=== PATIENT | male | born 1945 | race Caucasian/White ===

== ENCOUNTER → 2020-11-16 08:47 | Outpatient (BNVA) | payer OTHER, SELFPAY | PROVIDERS: PCP Internal Medicine; Visit Provider Urology | DX: N40.0 Benign prostatic hyperplasia without lower urinary tract symptoms (principal); R97.20 Elevated prostate specific antigen [PSA] | CPT/HCPCS: 51798 ==

== ENCOUNTER 2020-12-07 11:29 | Outpatient (REF) | payer OTHER, SELFPAY ==
[2020-12-07 11:43] VITALS: BMI 38.7
[2020-12-07 11:48] VITALS: BP 130/68; PULSE 76; RESP 16; TEMP 36.3; O2SAT 98
--- NOTE | 2020-12-07 12:32 | W.PM.OPN ---
Operative Note Operative Note Date of Service: 12/07/20 Narrative: Preoperative diagnosis: Elevated PSA Postoperative diagnosis: Elevated PSA Procedure: 1. transrectal ultrasound measurement of prostate 2. transrectal ultrasound-guided pudendal nerve block 3. transrectal ultrasound-guided prostate biopsy 12 core Surgeon: Dr. Charlie Yang Anesthetic: Local Indications for procedure: Elevated PSA PSA 50 Procedure: After informed consent was verified, the patient was brought into the procedure area and lay left-hand side down on the table. Patient identity confirmed. Perioperative antibiotics confirmed. Gel was placed per rectum Ultrasound probe was placed per rectum The prostate was measured in 3 dimensions Total volume equals 75 gm There were no cystic structures and no calcifications noted and the prostate was homogeneous in nature A ultrasound-guided pudendal nerve block was performed using 10 cc of 1% lidocaine. 8 cc was placed at the base and 2 cc of the apex. A 12 core biopsy was performed with 6 cores each side. Two cores were taken at the apex, mid and base. Cores were spaced between lateral and medial. He tolerated the procedure well. Was able to ambulate to bathroom after 5 minutes. Printed instructions regarding antibiotic use and common side effects such as low-grade temperature and bleeding were given.
[2020-12-07 12:45] VITALS: BP 110/70; PULSE 76; RESP 16; O2SAT 98
--- NOTE | 2021-02-23 15:39 | W.PM.OPN ---
Operative Note Operative Note Date of Service: 12/07/20 Narrative: Preoperative diagnosis: Elevated PSA Postoperative diagnosis: Elevated PSA Procedure: 1. transrectal ultrasound measurement of prostate 2. transrectal ultrasound-guided pudendal nerve block 3. transrectal ultrasound-guided prostate biopsy 12 core Surgeon: Dr. Charlie Yang Anesthetic: Local Indications for procedure: Elevated PSA Procedure: After informed consent was verified, the patient was brought into the procedure area and lay left-hand side down on the table. Patient identity confirmed. Perioperative antibiotics confirmed. Gel was placed per rectum Ultrasound probe was placed per rectum The prostate was measured in 3 dimensions Total volume equals 50 gm There were no cystic structures and no calcifications noted and the prostate was homogeneous in nature A ultrasound-guided pudendal nerve block was performed using 10 cc of 1% lidocaine. 8 cc was placed at the base and 2 cc of the apex. A 12 core biopsy was performed with 6 cores each side. Two cores were taken at the apex, mid and base. Cores were spaced between lateral and medial. He tolerated the procedure well. Was able to ambulate to bathroom after 5 minutes. Printed instructions regarding antibiotic use and common side effects such as low-grade temperature and bleeding were given.
== END 2020-12-07 11:30 | disposition home or self-care (01) ==
LOC: HO.MS 11:29
PROVIDERS: Visit Provider Urology
PROC: (CPT 55700; principal; 2020-12-07 12:00)
DX: C61 Malignant neoplasm of prostate (principal); R97.20 Elevated prostate specific antigen [PSA]
CPT/HCPCS: 55700; 76942; 88305

== ENCOUNTER → 2020-12-15 14:47 | Outpatient (BNVA) | payer OTHER, SELFPAY | PROVIDERS: PCP Internal Medicine; Visit Provider Urology ==

== ENCOUNTER → 2021-01-21 14:30 | Outpatient (BNVA) | payer OTHER, SELFPAY | PROVIDERS: PCP Internal Medicine ==

== ENCOUNTER → 2021-02-24 11:39 | Outpatient (BNVA) | payer OTHER, SELFPAY | PROVIDERS: PCP Internal Medicine; Visit Provider Urology ==

== ENCOUNTER 2021-04-07 11:17 | Outpatient (REF) | payer OTHER, SELFPAY ==
[2021-04-07 11:35] VITALS: BP 143/56; PULSE 86; RESP 16; TEMP 36.1; O2SAT 97
[2021-04-07 11:38] VITALS: BMI 36.9
[2021-04-07 12:51] VITALS: BP 113/55; PULSE 78; RESP 16; O2SAT 97
--- NOTE | 2021-04-07 14:25 | W.PM.OPN ---
Operative Note Operative Note Date of Service: 04/07/21 Narrative: Preoperative diagnosis: Prostate cancer Postoperative diagnosis: Prostate cancer Procedure: 1. Transrectal ultrasound-guided pudendal nerve block 2. Transrectal ultrasound-guided gold seed placement Surgeon: Dr. Charlie Yang Anesthetic: Local Indications for procedure: Prostate Cancer Procedure: After informed consent was verified, the patient was brought into the procedure area and lay left-hand side down on the table. Patient identity confirmed. Perioperative antibiotics confirmed. Gel was placed per rectum Ultrasound probe was placed per rectum A ultrasound-guided pudendal nerve block was performed using 10 cc of 1% lidocaine. 8 cc was placed at the base and 2 cc of the apex. 3 gold seed markers placed. 2 on the right, 1 on the left. The purpose is for triangulation. He tolerated the procedure well. Was able to ambulate to bathroom after 5 minutes. Printed instructions regarding antibiotic use and common side effects such as low-grade temperature and bleeding were given
== END 2021-04-07 11:18 | disposition home or self-care (01) ==
LOC: HO.MS 11:17
PROVIDERS: PCP Internal Medicine; Visit Provider Urology
PROC: (CPT 55876; principal; 2021-04-07 12:00)
DX: C61 Malignant neoplasm of prostate (principal)
CPT/HCPCS: 55876; 76942; A4648

== ENCOUNTER → 2021-07-22 09:14 | Outpatient (BNVA) | payer OTHER, SELFPAY | PROVIDERS: PCP Internal Medicine; Visit Provider Urology | DX: Z13.89 Encounter for screening for other disorder (principal) ==

== ENCOUNTER → 2021-08-05 09:11 | Outpatient (BNVA) | payer OTHER, SELFPAY | PROVIDERS: PCP Internal Medicine; Visit Provider Urology | DX: Z51.11 Encounter for antineoplastic chemotherapy (principal); C61 Malignant neoplasm of prostate | CPT/HCPCS: 96402; J9217 ==

== ENCOUNTER → 2021-10-28 10:43 | Outpatient (BNVA) | payer OTHER, MEDICARE, SELFPAY | PROVIDERS: PCP Internal Medicine; Visit Provider Urology | DX: C61 Malignant neoplasm of prostate (principal) | CPT/HCPCS: 51798 ==

== ENCOUNTER → 2022-02-16 08:59 | Outpatient (BNVA) | payer OTHER, SELFPAY | PROVIDERS: PCP Internal Medicine; Visit Provider Urology | DX: C61 Malignant neoplasm of prostate (principal) | CPT/HCPCS: 96402; J9217 ==

== ENCOUNTER → 2022-08-25 09:04 | Outpatient (BNVA) | payer OTHER, SELFPAY | PROVIDERS: PCP Internal Medicine; Visit Provider Urology ==

== ENCOUNTER 2022-11-28 11:22 | Outpatient (AMB) | payer OTHER, SELFPAY ==
--- NOTE | 2022-11-28 11:31 | A.OFFVIS_ITS ---
Intake Intake Visit Reasons: 3M PSA/Testo(set) Intake Note: Patient is present for Follow Up Urology Med: Tamsulosin Antibiotic Allergy:None Blood Thinner: Aspirin Pharmacy: [facility] Allergies No Known Allergies Allergy (Verified 08/25/22 09:22) Medication List - Last Reconciled 11/28/22 by Charlie Yang MD aspirin (Adult Low Dose Aspirin) 81 mg PO DAILY hydrochlorothiazide 25 mg PO DAILY lisinopril 10 mg PO DAILY metformin 2,000 mg PO DAILY peg-electrolyte soln 420 gram 4,000 mL PO DIRECTED pravastatin 80 mg PO DAILY pravastatin 80 mg PO DAILY tamsulosin 0.4 mg PO DAILY HPI HPI Comments History of Present Illness Details Melvin is a pleasant male. He is a patient of Dr. Thomas. He is seen for the following urologic conditions. - elevated PSA High-grade prostate cancer follow-up Continues PSA remains low, testosterone remains suppressed Continue 3 month follow-up for 2 years Prostate cancer - high-grade prostate cancer November 2020 initial PSA 37 - completed external beam radiation [facility] 07/12 Last [facility] 08/12 Initial therapy - external beam radiation [facility] plus hormones 18 months - radiation complete 07/12 - testosterone remained blocked for 24 months Prostate cancer diagnosed by Dr. Yang November 2020 Delay secondary to COVID from 2019 Background diabetes PSA 04/09 , a total PSA evaluation 5.6 08/09 2.6, 02/08 2.9, 08/10 10.5, 10/12 0.8 T 17, 02/11 0.7 T 17, 08/13 0.4 T19, 11/12 0.3 11 Histologic type: Adenocarcinoma, acinar type Histologic grade: [place] score:5+4=9 (left base lateral, left mid lateral, left mid medial, left apex lateral) 4+3=7 (left base medial) Tumor quantitation: Number cores positive: 5 Total number of cores: 12 ?% of tissue involved: 35% of all tissue examined (tumor only present on left side) Perineural inv.: Present LVI: Not identified [facility] 01/21/2021, 08/12 Staging - 02/[address] scan negative Three month follow-up lab work PFSH Medical History Benign prostatic hyperplasia with lower urinary tract symptoms Elevated PSA HTN (hypertension) Nocturia Urinary urgency Social History Patient Tobacco Use Status: Never used Tobacco Review of Systems Const Denies chills and Denies fever(s) Card Reports no additional complaints and Denies syncope Resp Denies cough GI Denies abdominal pain and Denies heartburn Reports as per HPI and Denies change in libido Neuro Denies syncope Psych Denies change in libido Endo Denies change in libido Physical Exam Const General: cooperative, healthy appearing, comfortable and no acute distress Orientation/consciousness: patient oriented x3 HEENT Face and sinus: Yes normal facial exam Mouth: moist mucous membranes Neck Neck: Yes normal visual inspection, Yes full ROM and Yes trachea midline Chest Chest palpation & inspection: normal inspection of the chest Resp Effort & Inspection: normal respiratory effort, able to speak in complete sentences and no respiratory distress GI Inspection: Yes normal to inspection Back/Spine/Pelvis Cervical Spine: normal cervical lordosis Thoracic/Lumbar Spine: thoracic and lumbar spine normal to inspection Skin General skin exam: no rashes or lesions noted Neuro General: patient oriented x3, gait normal, tone normal and moves all extremities Extrem General: Yes normal to inspection and Yes capillary refill normal Assessment & Plan Assessment & Plan (1) Prostate cancer: Comment: December 2020 high-grade prostate cancer - external beam radiation with 18 months hormones Code(s): C61 - Malignant neoplasm of prostate Plan Three month follow-up Orders: Orders Prostate Specific Antigen 3 Months C61 - Malignant neoplasm of prostate Testosterone, Total 3 Months C61 - Malignant neoplasm of prostate Patient Instructions: Imaging studies, laboratory and physical exam results were discussed and r eviewed in detail. No major barriers to patient understanding were identified. An opportunity to ask questions regarding the treatment plan was provided. All questions were answered. The patient expressed understanding and agreement with the above treatment plan. The patient is aware they should contact our office by phone for worsening of their current condition or the appearance of new urologic symptoms. Compliance is encouraged with any medications and followup testing that is ordered. It is a privilege to participate in the urologic care of your patient. If you have any questions or concerns regarding treatment for the above conditions, or other urologic issues, please do not hesitate to contact me. The office telephone contact is [phone]. This note is constructed using voice recognition software. While every effort has been made to ensure accuracy cork cutter errors may have been included. Yours sincerely, Dr Charlie Yang MD, [facility] - Urology Providers of Expert, Compassionate Care for the Genitourinary System Coding Level of Care Code Est Pt Level 3 (35368) Diagnoses Prostate cancer C61
== END 2022-11-28 12:01 | disposition home or self-care (01) ==
PROVIDERS: Visit Provider Urology
DX: C61 Malignant neoplasm of prostate (principal)
CPT/HCPCS: 99213

== ENCOUNTER → 2022-11-28 11:22 | Outpatient (BNVA) | payer OTHER, SELFPAY | PROVIDERS: Visit Provider Urology ==

== ENCOUNTER 2023-02-28 09:11 | Outpatient (AMB) | payer OTHER, SELFPAY ==
--- NOTE | 2023-02-28 09:12 | A.OFFVIS_ITS ---
Intake Intake Visit Reasons: 3m/PSA(set) Intake Note: Patient is Present for Telephone Follow Up PSA Urology Med: Tamsulosin (Patient would like to discuss if he should stay on medication) Antibiotic Allergy: None Blood Thinner: Aspirin Allergies No Known Allergies Allergy (Verified 02/28/23 09:13) Medication List - Last Reconciled 02/28/23 by Charlie Yang MD aspirin (Adult Low Dose Aspirin) 81 mg PO DAILY hydrochlorothiazide 25 mg PO DAILY lisinopril 10 mg PO DAILY metformin 2,000 mg PO DAILY peg-electrolyte soln 420 gram 4,000 mL PO DIRECTED pravastatin 80 mg PO DAILY pravastatin 80 mg PO DAILY tamsulosin 0.4 mg PO DAILY HPI HPI Comments History of Present Illness Details Melvin is a pleasant male. He is a patient of Dr. Thomas. He is seen for the following urologic conditions. - elevated PSA - prostate cancer Telemedicine Evaluation 15 min Consultation [facility] Video attempted High-grade prostate cancer follow-up Continues PSA remains low, testosterone remains suppressed Continue 3 month follow-up for 2 years Prostate cancer - high-grade prostate cancer November 2020 initial PSA 37 - completed external beam radiation [facility] 07/12 Last [facility] 08/12 Initial therapy - external beam radiation [facility] plus hormones 18 months - radiation complete 07/12 - testosterone remained blocked for 24 m [facility] Prostate cancer diagnosed by Dr. Yang November 2020 Delay secondary to COVID from 2019 Background diabetes PSA 04/09 , a total PSA evaluation 5.6 08/09 2.6, 02/08 2.9, 08/10 10.5, 10/12 0.8 T 17, 02/11 0.7 T 17, 08/13 0.4 T19, 11/12 0.3 11, 03/15 0.3 17 Histologic type: Adenocarcinoma, acinar type Histologic grade: [place] score:5+4=9 (left base lateral, left mid lateral, left mid medial, left apex lateral) 4+3=7 (left base medial) Tumor quantitation: Number cores positive: 5 Total number of cores: 12 ?% of tissue involved: 35% of all tissue examined (tumor only present on left side) Perineural inv.: Present LVI: Not identified [facility] 01/21/2021, 08/12 Staging - 02/[address] scan negative Three month follow-up lab work [facility] Medical History HTN (hypertension) Benign prostatic hyperplasia with lower urinary tract symptoms Urinary urgency Nocturia Elevated PSA Social History Patient Tobacco Use Status: Never used Tobacco Review of Systems Const All systems reviewed & are unremarkable except as noted in HPI and below Reports no additional complaints Resp Reports no additional complaints GI Reports no additional complaints Reports as per HPI Musc Reports no additional complaints Physical Exam Telemedicine evaluation Appropriate responses Regular breathing rate and rhythm HEENT Head: Yes normal to inspection Ears: hearing grossly normal bilaterally Eyes General: appearance normal, both eyes and all related structures Neck Neck: Yes normal visual inspection Chest Chest palpation & inspection: normal inspection of the chest Resp Effort & Inspection: normal respiratory effort and able to speak in complete sentences Assessment & Plan Assessment & Plan (1) Prostate cancer: Comment: December 2020 high-grade prostate cancer - external beam radiation with 18 months hormones Code(s): C61 - Malignant neoplasm of prostate (2) Elevated PSA: Code(s): R97.20 - Elevated prostate specific antigen [PSA] Plan Three month follow-up labs office Orders: Orders Testosterone, Total 3 Months C61 - Malignant neoplasm of prostate Prostate Specific Antigen 3 Months C61 - Malignant neoplasm of prostate Patient Instructions: Imaging studies, laboratory and physical exam results were discussed and reviewed in detail. No major barriers to patient understanding were identified. An opportunity to ask questions regarding the treatment plan was provided. All questions were answered. The patient expressed understanding and agreement with the above treatment plan. The patient is aware they should contact our office by phone for worsening of their current condition or the appearance of new urologic symptoms. Compliance is encouraged with any medications and followup testing that is ordered. It is a privilege to participate in the urologic care of your patient. If you have any questions or concerns regarding treatment for the above conditions, or other urologic issues, please do not hesitate to contact me. The office telephone contact is [phone]. This note is constructed using voice recognition software. While every effort has been made to ensure accuracy energy assistant errors may have been included. Yours sincerely, Dr Charlie Yang MD, [facility] - Urology Providers of Expert, Compassionate Care for the Genitourinary System Telehealth Telehealth Location of provider rendering services: practice address Location of patient: address on file Patient Identification confirmed using: Name, : Yes Telehealth method: video Patient verbally consented to treatment: Yes Patient verbally consented to billing insurance company: Yes Patient informed of any privacy concerns related to visit: Yes Coding Level of Care Code Tele Est Pt Level 3 (62703) Diagnoses Prostate cancer C61 Elevated PSA R97.20
== END 2023-02-28 09:37 | disposition home or self-care (01) ==
LOC: HO.HUSH 09:11
PROVIDERS: PCP Internal Medicine; Visit Provider Urology
DX: C61 Malignant neoplasm of prostate (principal); R97.20 Elevated prostate specific antigen [PSA]
CPT/HCPCS: 99213

== ENCOUNTER → 2023-02-28 09:11 | Outpatient (BNVA) | payer OTHER, SELFPAY | PROVIDERS: PCP Internal Medicine; Visit Provider Urology ==

== ENCOUNTER 2023-05-30 11:59 | Outpatient (REF) | payer OTHER, SELFPAY ==
[2023-05-30 13:54] LABS: Prostate Specific Antigen 0.61 ng/mL (<0.05-4.0)
[2023-06-04 13:43] LABS: Testosterone, Total 76 ng/dL (250-1100)
== END 2023-05-30 12:00 | disposition home or self-care (01) ==
LOC: HO.LAB 11:59
PROVIDERS: Visit Provider Urology
DX: Z12.5 Encounter for screening for malignant neoplasm of prostate (principal); C61 Malignant neoplasm of prostate
CPT/HCPCS: 36415; 84153; 84403

== ENCOUNTER 2023-06-14 11:18 | Outpatient (AMB) | payer OTHER, SELFPAY ==
--- NOTE | 2023-06-14 12:09 | A.OFFVIS_ITS ---
Intake Intake Visit Reasons: 3M PSA/Testo(set) Intake Note: Patient is Present for Follow Up labs Urology Medication: None Antibiotic Allergies: None Blood Thinners: Aspirin Pharmacy confirmed: [facility] [place] Allergies No Known Allergies Allergy (Verified 06/14/23 12:11) HPI HPI Comments History of Present Illness Details Melvin is a pleasant male. He is a patient of Dr. Thomas. He is seen for the following urologic conditions. - elevated PSA - prostate cancer Three-month High-grade prostate cancer follow-up PSA staying well controlled Move to six-month follow-up Prostate cancer - high-grade prostate cancer November 2020 initial PSA 37 - completed external beam radiation [facility] 07/12 Last [facility] 08/12 Initial therapy - external beam radiation [facility] plus hormones 18 months - radiation complete 07/12 - testosterone remained blocked for 24 m [facility] Prostate cancer diagnosed by Dr. Yang November 2020 Delay secondary to COVID from 2019 Background diabetes PSA 04/09 , a total PSA evaluation 5.6 08/09 2.6, 02/08 2.9, 08/10 10.5, 10/12 0.8 T 17, 02/11 0.7 T 17, 08/13 0.4 T19, 11/12 0.3 11, 03/15 0.3 17, 06/16 0.6 T 76 Histologic type: Adenocarcinoma, acinar type Histologic grade: [place] score:5+4=9 (left base lateral, left mid lateral, left mid medial, left apex lateral) 4+3=7 (left base medial) Tumor quantitation: Number cores positive: 5 Total number of cores: 12 ?% of tissue involved: 35% of all tissue examined (tumor only present on left side) Perineural inv.: Present LVI: Not identified [facility] 01/21/2021, 08/12 Staging - 02/[address] scan negative [facility] Medical History HTN (hypertension) Benign prostatic hyperplasia with lower urinary tract symptoms Urinary urgency Nocturia Elevated PSA Social History Patient Tobacco Use Status: Never used Tobacco Review of Systems Const Denies chills and Denies fever(s) Card Reports no additional complaints and Denies syncope Resp Denies cough GI Denies abdominal pain and Denies heartburn Reports as per HPI and Denies change in libido Neuro Denies syncope Psych Denies change in libido Endo Denies change in libido Physical Exam Const General: cooperative, healthy appearing, comfortable and no acute distress Orientation/consciousness: patient oriented x3 HEENT Face and sinus: Yes normal facial exam Mouth: moist mucous membranes Neck Neck: Yes normal visual inspection, Yes full ROM and Yes trachea midline Chest Chest palpation & inspection: normal inspection of the chest Resp Effort & Inspection: normal respiratory effort, able to speak in complete sentences and no respiratory distress GI Inspection: Yes normal to inspection Back/Spine/Pelvis Cervical Spine: normal cervical lordosis Thoracic/Lumbar Spine: thoracic and lumbar spine normal to inspection Skin General skin exam: no rashes or lesions noted Neuro General: patient oriented x3, gait normal, tone normal and moves all extremities Extrem General: Yes normal to inspection and Yes capillary refill normal Assessment & Plan Assessment & Plan (1) Prostate cancer: Comment: December 2020 high-grade prostate cancer - external beam radiation with 18 months hormones Code(s): C61 - Malignant neoplasm of prostate Plan Six month follow-up labs Orders: Orders Testosterone, Total 6 Months C61 - Malignant neoplasm of prostate Prostate Specific Antigen 6 Months C61 - Malignant neoplasm of prostate Patient Instructions: Imaging studies, laboratory and physical exam results were discussed and reviewed in detail. No major barriers to patient understanding were identified. An opportunity to ask questions regarding the treatment plan was provided. All q uestions were answered. The patient expressed understanding and agreement with the above treatment plan. The patient is aware they should contact our office by phone for worsening of their current condition or the appearance of new urologic symptoms. Compliance is encouraged with any medications and followup testing that is ordered. It is a privilege to participate in the urologic care of your patient. If you have any questions or concerns regarding treatment for the above conditions, or other urologic issues, please do not hesitate to contact me. The office telephone contact is [phone]. This note is constructed using voice recognition software. While every effort has been made to ensure accuracy drywall sander errors may have been included. Yours sincerely, Dr Charlie Yang MD, [facility] - Urology Providers of Expert, Compassionate Care for the Genitourinary System Coding Level of Care Code Est Pt Level 3 (41246) Diagnoses Prostate cancer C61
== END 2023-06-14 12:27 | disposition home or self-care (01) ==
PROVIDERS: PCP Internal Medicine; Visit Provider Urology
DX: C61 Malignant neoplasm of prostate (principal)
CPT/HCPCS: 99213

== ENCOUNTER → 2023-06-14 11:18 | Outpatient (BNVA) | payer OTHER, SELFPAY | PROVIDERS: PCP Internal Medicine; Visit Provider Urology ==